=== PATIENT | female | born 1960 | race Asian ===

== ENCOUNTER 2016-09-11 15:43 | Emergency (ER) | payer OTHER | END 2016-09-11 18:06 | disposition home or self-care (01) | LOC: ER 15:43 | DX: M47.892 Other spondylosis, cervical region (principal); M54.2 Cervicalgia; S16.1XXA Strain of muscle, fascia and tendon at neck level, initial encounter; S09.90XA Unspecified injury of head, initial encounter; S80.212A Abrasion, left knee, initial encounter; S80.211A Abrasion, right knee, initial encounter; S80.02XA Contusion of left knee, initial encounter; S80.01XA Contusion of right knee, initial encounter; V43.52XA Car driver injured in collision with other type car in traffic accident, initial encounter | CPT/HCPCS: 70450; 72125 ==